=== PATIENT | female | born 1985 | race African-American/Black ===

== ENCOUNTER 2018-11-24 07:41 | Day surgery (SDC) | payer MEDICAID, OTHER ==
[2018-11-24 08:21] VITALS: BP 135/64; TEMP 98.5
[2018-11-24 08:23] VITALS: BMI 32.1
[2018-11-24] MEDS ORDERED: hydrALAZINE 20 MG/ML VIAL SLOW IVP PRN (09:29)
[2018-11-24 10:07] LABS: Hemoglobin A1c 5.2 % (4.0-6.0)
[2018-11-24 10:23] LABS: Amphetamine Not Detected (NotDetected); Barbiturates Screen Not Detected (NotDetected); Benzodiazepine Screen Not Detected (NotDetected); Cocaine Metabolite Screen Not Detected (NotDetected); Medtox Control Line Valid? VALID (VALID); Medtox Reader # READER 4; Methadone Not Detected (NotDetected); Methamphetamine Not Detected (NotDetected); Opiate Screen Not Detected (NotDetected); Oxycodone Screen Not Detected (NotDetected); Phencyclidine (PCP) Not Detected (NotDetected); THC/Cannabinoid Screen Not Detected (NotDetected); Tricyclic Screen Not Detected (NotDetected)
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
== END 2018-11-24 10:45 | disposition home or self-care (01) ==
LOC: L&D/OP 07:41
PROVIDERS: ATTEND Family Medicine
DX: O26.893 Other specified pregnancy related conditions, third trimester (principal); R10.30 Lower abdominal pain, unspecified; R39.198 Other difficulties with micturition; O24.419 Gestational diabetes mellitus in pregnancy, unspecified control; O99.323 Drug use complicating pregnancy, third trimester; F14.90 Cocaine use, unspecified, uncomplicated; F12.90 Cannabis use, unspecified, uncomplicated; F19.90 Other psychoactive substance use, unspecified, uncomplicated; Z3A.31 31 weeks gestation of pregnancy
CPT/HCPCS: 36415; 59025; 80306; 83036; 99283

== ENCOUNTER 2019-01-02 11:17 | Inpatient (IN) | payer OTHER ==
[2019-01-02] MEDS ORDERED: Acetaminophen 500 MG TAB PO SCH (12:30)
[2019-01-02 12:55] LABS: #Basophils 0.1 thou/uL (0.0-0.2); #Lymphocytes 2.2 thou/uL (1.20-3.40); #Monocytes 0.8 thou/uL (0.11-0.59); #Neutrophils 4.6 thou/uL (1.40-6.50); %Basophils 1.2 % (0.0-1.0); %Eosinophils 0.4 % (0.0-10.0); %Lymphocytes 27.9 % (21.0-51.0); %Monocytes 10.8 % (0.0-10.0); %Neutrophils 59.7 % (42.0-75.0); Hemoglobin 12.2 g/dL (12.0-16.0); Mean Corpuscular HGB CONC 34.3 g/dL (32.0-36.0); Mean Corpuscular Hemoglobin 29.2 pg (27.0-31.0); Mean Corpuscular Volume 85.3 fL (78.0-98.0); Mean Platelet Volume 8.8 fL (7.4-10.4); Platelet Count 165 thou/uL (130-400); Red Blood Cell (RBC) Count 4.16 mill/uL (4.20-5.40); White Blood Cell (WBC) Count 7.7 thou/uL (4.8-10.8)
[2019-01-02 13:11] LABS: Amphetamine Not Detected (NotDetected); Barbiturates Screen Not Detected (NotDetected); Benzodiazepine Screen Not Detected (NotDetected); Cocaine Metabolite Screen Not Detected (NotDetected); Medtox Reader # READER 1; Methadone Not Detected (NotDetected); Methamphetamine Not Detected (NotDetected); Opiate Screen Not Detected (NotDetected); Oxycodone Screen Not Detected (NotDetected); Phencyclidine (PCP) Not Detected (NotDetected); THC/Cannabinoid Screen Not Detected (NotDetected); Tricyclic Screen Not Detected (NotDetected)
[2019-01-02 13:12] LABS: Medtox Control Line Valid? VALID (VALID)
[2019-01-02 13:16] LABS: ALT (SGPT) 13 U/L (8-55); AST (SGOT) 12 U/L (5-34); Albumin 3.3 g/dL (3.5-5.0); Alkaline Phosphatase 228 U/L (40-150); Anion Gap 10 mmol/L (10-20); BUN (Urea Nitrogen) 5 mg/dL (7.0-18.7); Bilirubin, Total 0.2 mg/dL (0.2-1.2); Calc. Creatinine Clearance 218 mL/min (70-130); Carbon Dioxide 18 mmol/L (22-29); Chloride 109 mmol/L (98-107); Estimated GFR-MDRD Greater than 90; Globulin 2.8 g/dL (2.4-3.5); Glucose 96 mg/dL (70-105); Protein, Total 6.1 g/dL (6.0-8.3); Sodium 133 mmol/L (136-145)
--- NOTE | 2019-01-02 13:18 | ULT ---
ULTRASOUND BIOPHYSICAL PROFILE: DATE: 01/02/2019 HISTORY: 33-year-old female in third trimester of FINDINGS: breathin tone: 2 movement: 2 Amniotic fluid volume: 2 IMPRESSION: Normal biophysical profile score of 8 out of 8, excluding the nonstress test.
--- NOTE | 2019-01-02 13:27 | ULT ---
ULTRASOUND OBSTETRICAL COMPLETE: DATE: 01/02/2019 HISTORY: 33-year-old female in third trimester of . Evaluate growth and NORMA COMPARISON: None available FINDINGS: number: garber lie: Vertex Maternal cervix: Completely obscured Placenta: Anterior. No placenta previa. Amniotic fluid volume: NORMA = 15cm heart rate: 130 bpm anatomy not evaluated. biometry: Biparietal diameter (BPD): 9.0 cm 36 w 3 d Head circumference (HC): 32.0 cm 36 w 1 d Abdominal circumference (AC): 31.9 cm 35 w 6 d Femur length (FL): 6.9 cm 35 w 2 d Average ultrasound age (AUA): 36 w 0 d Estimated date of delivery (STEPH): 01/30/2019 Estimated weight (EFW): 2763 g +/- 409 g IMPRESSION: 1) Live 3rd trimester intrauterine gestation. 2) Estimated gestational age of 36 weeks, 0 days 3) cephalic lie. 4) NORMA 15 cm
[2019-01-02 13:40] LABS: Amnisure Test No Membranes Rupture (No Rupture)
[2019-01-02 13:41] LABS: Amnisure Internal Control QC ACCEPTABLE (ACCEPTABLE)
[2019-01-02 14:34] LABS: Creatinine, Urine 97.18 mg/dL (47-110)
[2019-01-02] MEDS ORDERED: Ondansetron ODT 4 MG TAB PO PRN (17:51)
[2019-01-02] MEDS ORDERED: Ondansetron PF 4 MG/2 ML Vial IVP PRN (17:51)
[2019-01-02] MEDS ORDERED: Calcium Carbonate 500 MG ChewTAB PO PRN (17:51)
[2019-01-02] MEDS: Acetaminophen 325 MG TAB PO PRN (19:05)
[2019-01-02 21:56] VITALS: BMI 33.3
[2019-01-03] MEDS: Acetaminophen 325 MG TAB PO PRN ×2 (03:09→11:19)
[2019-01-03 15:25] VITALS: BP 135/84; TEMP 97.5
[2019-01-03 16:13] LABS: Urine Total Volume 5500 mL (600-1600)
[2019-01-03 16:33] LABS: Protein, Urine Less than 10 mg/dL (1-14)
== END 2019-01-03 17:43 | disposition home or self-care (01) | DRG 833 ==
LOC: L&D/OP 11:17 → 3SE 15:30
PROVIDERS: ADMIT Family Medicine; ATTEND Family Medicine
DX: O29.43 Spinal and epidural anesthesia induced headache during pregnancy, third trimester (principal); Z3A.37 37 weeks gestation of pregnancy; R03.0 Elevated blood-pressure reading, without diagnosis of hypertension
CPT/HCPCS: 36415; 51701; 59025; 76815; 76819; 80053; 80306; 82570; 84112; 84156; 85025; 99285

== ENCOUNTER 2019-01-13 10:21 | Inpatient (IN) | payer OTHER ==
[~2019-01-13 10:21] MED LIST: Bupivacaine 0.25% HCL 30 ML VIAL ONE
[2019-01-13] MEDS ORDERED: Ondansetron PF 4 MG/2 ML Vial IVP PRN ×3 (10:33→22:22)
[2019-01-13] MEDS ORDERED: Carboprost 250 MCG/ML AMP IM PRN (10:33)
[2019-01-13] MEDS ORDERED: Butorphanol Tartrate 1 MG/ML VIAL SLOW IVP PRN (10:33)
[2019-01-13] MEDS ORDERED: hydrALAZINE 20 MG/ML VIAL SLOW IVP PRN ×2 (10:33→22:22)
[2019-01-13] MEDS ORDERED: Misoprostol 200 MCG TAB PR PRN (10:33)
[2019-01-13] MEDS ORDERED: Lidocaine 1% (PF) 30 ML VIAL SC PRN (10:33)
[2019-01-13] MEDS ORDERED: HYDROcodone/Acetaminophen 5/325 mg Tablet PO PRN (10:33)
[2019-01-13] MEDS ORDERED: Ibuprofen 800 MG TAB PO PRN (10:33)
[2019-01-13] MEDS ORDERED: Diphenoxylate HCl/Atropine Tablet PO PRN (10:33)
[2019-01-13] MEDS ORDERED: Promethazine HCl 25 MG/ML VIAL IM PRN ×3 (10:33→22:22)
[2019-01-13] MEDS: Lactated Ringer's 1,000 ML IV SCH ×3 (10:40→18:33)
[2019-01-13] MEDS ORDERED: NS w/ Oxytocin 10 units 500 ML IV SCH ×2 (10:45)
[2019-01-13] MEDS ORDERED: NS w/ Oxytocin 10 units 500 ML ONE (11:08)
[2019-01-13 11:33] LABS: Hemoglobin 12.5 g/dL (12.0-16.0); Mean Corpuscular HGB CONC 34.2 g/dL (32.0-36.0); Mean Corpuscular Hemoglobin 29.1 pg (27.0-31.0); Mean Corpuscular Volume 85.1 fL (78.0-98.0); Mean Platelet Volume 9.4 fL (7.4-10.4); Platelet Count 188 thou/uL (130-400); RBC Distribution Width 12.6 % (11.5-14.5); Red Blood Cell (RBC) Count 4.29 mill/uL (4.20-5.40); White Blood Cell (WBC) Count 9.5 thou/uL (4.8-10.8)
[2019-01-13 11:43] VITALS: BMI 33.4
[2019-01-13] MEDS ORDERED: Gentamicin Sulfate 400 MG in Sodium Chloride 0.9% 100 ML IVPB SCH (12:00)
[2019-01-13 12:07] LABS: Syphilis Antibody Nonreactive (Nonreactive); Syphilis Antibody Index 0.03 S/CO (<1.00 Non-Reactive)
[2019-01-13 12:09] LABS: HBSAg Index 0.16 S/CO (0-0.99); Hep B Surf Ag Non-Reactive S/CO (NonReactive)
[2019-01-13 12:14] LABS: ALT (SGPT) 12 U/L (8-55); AST (SGOT) 10 U/L (5-34); Albumin 3.4 g/dL (3.5-5.0); Alkaline Phosphatase 269 U/L (40-150); Anion Gap 10 mmol/L (10-20); BUN (Urea Nitrogen) 7 mg/dL (7.0-18.7); Bilirubin, Total 0.2 mg/dL (0.2-1.2); Calc. Creatinine Clearance 196 mL/min (70-130); Calcium 11.7 mg/dL (7.8-10.44); Carbon Dioxide 21 mmol/L (22-29); Chloride 106 mmol/L (98-107); Estimated GFR-MDRD Greater than 90; Glucose 140 mg/dL (70-105); Potassium 4.3 mmol/L (3.5-5.1); Protein, Total 6.4 g/dL (6.0-8.3); Sodium 133 mmol/L (136-145)
[2019-01-13] MEDS: Ampicillin 2 GM in Sodium Chloride 0.9% 100 ML IVPB SCH ×2 (13:12→18:35)
[2019-01-13 13:32] LABS: Amphetamine Not Detected (NotDetected); Barbiturates Screen Not Detected (NotDetected); Benzodiazepine Screen Not Detected (NotDetected); Cocaine Metabolite Screen Not Detected (NotDetected); Medtox Control Line Valid? VALID (VALID); Medtox Reader # READER 4; Methadone Not Detected (NotDetected); Methamphetamine Not Detected (NotDetected); Opiate Screen Not Detected (NotDetected); Oxycodone Screen Not Detected (NotDetected); Phencyclidine (PCP) Not Detected (NotDetected); THC/Cannabinoid Screen Not Detected (NotDetected); Tricyclic Screen Not Detected (NotDetected)
[2019-01-13] MEDS ORDERED: Fentanyl 4 mcg/Bup 0.1% Cadd 100 ML ONE (16:41)
[2019-01-13] MEDS ORDERED: Lidocaine 1% (PF) 30 ML VIAL ONE (19:35)
[2019-01-13] MEDS: NS / Oxytocin 40 units/1000ml 1,000 ML IV PRN ×2 (20:22→21:38)
[2019-01-13] MEDS ORDERED: ePHEDrine/0.9% NaCl/PF SYRINGE 50 mg/10 ml SLOW IVP PRN (20:34)
[2019-01-13] MEDS ORDERED: Lactated Ringer's 500 ML IV PRN (20:34)
[2019-01-13] MEDS ORDERED: Acetaminophen 325 MG TAB PO PRN (20:34)
[2019-01-13] MEDS ORDERED: Naloxone HCl 0.4 mg/ml Vial IVP PRN ×2 (20:34)
[2019-01-13] MEDS ORDERED: diphenhydrAMINE 50 MG/ML VIAL IVP PRN (20:34)
[2019-01-13] MEDS ORDERED: Fentanyl 4 mcg/Bupivacaine 0.1% Cassette 100 ML EPIDURAL SCH (20:45)
[2019-01-13] MEDS ORDERED: Communication Order-Pharmacy FS SCH (20:45)
[2019-01-13] MEDS ORDERED: Benzocaine-Menthol 82.5 ML CAN TOP PRN (22:22)
[2019-01-13] MEDS ORDERED: Milk Of Magnesia 30 ML UDCUP PO PRN (22:22)
[2019-01-13] MEDS ORDERED: diphenhydrAMINE 25 MG CAP PO PRN (22:22)
[2019-01-13] MEDS ORDERED: Bisacodyl 10 MG SUPP PR PRN (22:22)
[2019-01-13] MEDS ORDERED: cloNIDine 0.1 MG TAB PO PRN (22:22)
[2019-01-13] MEDS ORDERED: Lanolin Ointment 7 GM TUBE TOP PRN (22:22)
[2019-01-13] MEDS ORDERED: NS / Oxytocin 40 units/1000ml 1,000 ML IV SCH (22:22)
[2019-01-13] MEDS ORDERED: Ibuprofen 800 MG TAB PO SCH (22:30)
[2019-01-13] MEDS ORDERED: Docusate Calcium (SURFAK) 240 MG CAP PO SCH (22:30)
[2019-01-13] MEDS: HYDROcodone/Acetaminophen 5/325 mg Tablet PO PRN (23:12)
[2019-01-14] MEDS: HYDROcodone/Acetaminophen 5/325 mg Tablet PO PRN ×4 (02:51→22:08)
[2019-01-14] MEDS: Ibuprofen 800 MG TAB PO SCH ×3 (05:53→21:22)
[2019-01-14 06:31] LABS: Hemoglobin 11.7 g/dL (12.0-16.0); Mean Corpuscular HGB CONC 33.5 g/dL (32.0-36.0); Mean Corpuscular Hemoglobin 28.5 pg (27.0-31.0); Mean Corpuscular Volume 84.9 fL (78.0-98.0); Mean Platelet Volume 9.3 fL (7.4-10.4); Platelet Count 153 thou/uL (130-400); RBC Distribution Width 12.7 % (11.5-14.5); Red Blood Cell (RBC) Count 4.12 mill/uL (4.20-5.40)
[2019-01-14] MEDS ORDERED: Adacel (T-DAP) 0.5 ML SYRINGE IM ONE (09:00)
[2019-01-14] MEDS: Prenatal Vitamin 1 TAB PO SCH (09:11)
[2019-01-14] MEDS: Docusate Calcium (SURFAK) 240 MG CAP PO SCH ×2 (09:11→21:22)
[2019-01-14] MEDS: Ferrous Sulfate 325 MG TAB PO SCH ×2 (09:12→17:40)
[2019-01-15] MEDS: HYDROcodone/Acetaminophen 5/325 mg Tablet PO PRN ×3 (04:38→13:47)
[2019-01-15] MEDS: Ibuprofen 800 MG TAB PO SCH ×2 (05:23→13:47)
[2019-01-15] MEDS: Docusate Calcium (SURFAK) 240 MG CAP PO SCH (08:44)
[2019-01-15] MEDS: Prenatal Vitamin 1 TAB PO SCH (08:44)
[2019-01-15] MEDS: Ferrous Sulfate 325 MG TAB PO SCH (08:48)
[2019-01-15 12:00] VITALS: BP 137/75; TEMP 98.6
== END 2019-01-15 14:50 | disposition home or self-care (01) | DRG 807 ==
LOC: L&D 10:21 → 3SE 22:52
PROVIDERS: ADMIT Family Medicine; ATTEND Family Medicine
PROC: 10E0XZZ Delivery of Products of Conception, External Approach (ICD-10-PCS; principal; 2019-01-13)
DX: O80 Encounter for full-term uncomplicated delivery (principal); Z37.0 Single live birth; Z3A.38 38 weeks gestation of pregnancy
CPT/HCPCS: 36415; 80053; 80306; 81003; 85027; 86780; 86850; 86900; 86901; 87340; J0290; J1580; J2001; J2590; J3490; S0020